=== PATIENT | female | born 1995 | race Two or more races ===

== ENCOUNTER 2017-04-28 00:52 | Emergency (ER) | payer SELFPAY ==
[~2017-04-28] VITALS: Ht 142.2 cm; Wt 81.6 kg
--- NOTE | ~2017-04-28 | CT4 ---
[facility] A Service of [facility] RADIOLOGY TEXT RESULTS PATIENT: MICHAEL PEDERSON LOCATION: SED : [birth year] UNIT #: [id number] AGE: [address]: Hitesh Montoya MD SEX: F ORDER DR: [id number] [place] [id number] E MR#: [id number] #: [id number] NAME: MICHAEL PEDERSON : 1995 SEX: F STUDY DATE/TIME: 04/28/2017 1:54 UNIT: SED ROOM: STUDY DESCRIPTION: CT Abd and Pelv Wo Cont Attending Physician: Hitesh Montoya M.D. Ordering Physician: Hitesh Montoya M.D. MEDICAL IMAGING REPORT This report is preliminary unless electronic signature is present. EXAM CT abdomen and pelvis without contrast DATE 04/28/2017. HISTORY Abdominal and low back pain for 24 hours. COMPARISON None. PROCEDURE 3 mm noncontrast axial images through the abdomen and pelvis. Enteric contrast not administered. Sagittal and coronal reformatted images were obtained. This CT exam was performed with one or more of the following radiation dose reduction techniques: Automatic exposure control, adjustment of mA and/or kV according to patient size, and iterative reconstruction. FINDINGS ABDOMEN FINDINGS: 5-mm stone is seen within the right ureteropelvic junction with very mild right hydronephrosis. No left renal stone is seen. The liver is diffusely steatotic. There is a somewhat ill defined rounded area of increased density in the central right hepatic lobe measuring 2.6 cm, which is nonspecific. The liver is mildly enlarged, measuring about 19.6 cm craniocaudally. Spleen size is normal. No ascites. Gallbladder, pancreas, adrenals are normal. The appendix is not visualized but no pericecal inflammation is seen. Limited evaluation of bowel due to lack of enteric contrast but no focal bowel inflammation is identified. PELVIS FINDINGS: No pelvic adenopathy or free fluid is identified. [facility] A Service [facility] RADIOLOGY TEXT RESULTS PATIENT: MICHAEL PEDERSON LOCATION: SED : 97 UNIT #: [id number] AGE: [address]: Hitesh Montoya MD SEX: F ORDER DR: Urinary bladder decompressed. Rectum within normal limits. No acute osseous abnormalities. Imaged lung bases are free of consolidation. IMPRESSION 1. 5 mm right ureteropelvic junction stone with mild right hydronephrosis. 2. Hepatomegaly with hepatic steatosis. 3. 2.6 cm rounded ill-defined area of increased density in the central right hepatic lobe. It is nonspecific. It could simply represent a benign area of focal fatty sparing on background hepatic steatosis. Underlying liver lesion cannot be excluded. Consider correlation to MRI abdomen without and with contrast, hepatic imaging protocol, on a non-emergent basis. Dictated by... Tatum Santos M.D. THIS IS AN ELECTRONICALLY VERIFIED REPORT Tatum Santos M.D. at 04/28/2017 9:38 PM SHARON/bennett TD: 04/28/2017 17:12 JOB #: [id number] MEDICAL IMAGING REPORT Page 1 of 1
[2017-04-28] MEDS ORDERED: NO MEDICATIONS (01:01)
[2017-04-28 01:13] LABS: URINE SOURCE CLEAN CATCH
[2017-04-28 01:16] LABS: URINE APPEARANCE HAZY; URINE BILIRUBIN NEG (NEG); URINE BLOOD 3+ (NEG); URINE COLOR YELLOW; URINE GLUCOSE NEG (NORM); URINE KETONE TRACE (NEG); URINE LEUKOCYTE ESTERASE NEG (NEG); URINE NITRATE NEG (NEG); URINE PH 5.5 (5-8); URINE PROTEIN 1+ (NEG); URINE SPECIFIC GRAVITY >=1.030 (1.003-1.035); URINE UROBILINOGEN 0.2 MG/DL (NORM)
[2017-04-28 01:21] LABS: MICRO INDICATED? YES
[2017-04-28 01:22] LABS: CULTURE INDICATED? NO; URINE BACTERIA NEG (NEG); URINE CRYSTALS CALCIUM OXALATE /[HPF]; URINE RBC 200-300 /[HPF] (0-2); URINE SQUAMOUS EPITHELIAL CELL MODERATE /[HPF]; URINE TRANSITIONAL EPI CELLS FEW /[HPF]
[2017-04-28 01:23] LABS: URINE MUCUS PRESENT
[2017-04-28 01:39] LABS: BASOPHIL# 0.1 X10e3 (0-0.3); EOSINOPHIL# 0.1 X10e3 (0-0.7); EOSINOPHIL% 0.7 % (0.0-7.0); HEMATOCRIT 36.6 % (35.0-45.0); LYMPHOCYTE# 2.8 X10e3 (1.0-3.5); LYMPHOCYTE% 21.8 % (17.0-45.0); MEAN CELL VOLUME 82.5 FL (83-96); MEAN CORPUSCULAR HEMOGLOBIN 27.1 PG (28-34); MEAN CORPUSCULAR HGB CONC 32.9 g/dL (30-36); MEAN PLATELET VOLUME 7.7 FL (6.5-11.5); MONOCYTE# 0.7 X10e3 (0-1.0); MONOCYTE% 5.4 % (3.0-12.0); NEUTROPHIL# 9.1 X10e3 (1.5-7.1); NEUTROPHIL% 71.1 % (40-75); PLATELET COUNT 390 X10e3 (140-420); RED BLOOD COUNT 4.43 X10e (3.90-5.30); RED CELL DISTRIBUTION WIDTH 13.9 % (11.0-15.5); WHITE BLOOD COUNT 12.8 X10e3 (4.0-10.5)
[2017-04-28 01:40] LABS: DIFF IND NO
[2017-04-28 01:58] LABS: ALBUMIN SERUM 4.5 g/dL (3.5-5.0); ALKALINE PHOSPHATASE 58 U/L (32-92); ALT (SGPT) 41 U/L (8-29); AMYLASE 21 U/L (0-46); AST (SGOT) 31 U/L (14-37); BILIRUBIN,TOTAL 0.5 mg/dL (0.2-2.0); BLOOD UREA NITROGEN 16 mg/dL (9-23); CALCIUM SERUM 9.2 mg/dL (8.4-10.2); CARBON DIOXIDE 22 mmol/L (22-31); CHLORIDE 108 mmol/L (100-111); CREATININE SERUM 0.8 mg/dL (0.6-1.4); GLUCOSE FASTING 96 mg/dL (70-110); LIPASE 24 U/L (22-51); POTASSIUM 3.5 mmol/L (3.5-5.1); PROTEIN TOTAL SERUM 8.8 g/dL (6.0-8.3); SODIUM 139 mmol/L (135-145)
[2017-04-28 02:00] LABS: BILIRUBIN, DIRECT <0.1 mg/dL (0.0-0.2); BILIRUBIN,INDIRECT 0.4 mg/dL (0.0-0.9)
== END 2017-04-28 02:48 | disposition home or self-care (01) ==
LOC: SED 00:52
PROVIDERS: Emergency Medicine
DX: N13.2 Hydronephrosis with renal and ureteral calculous obstruction (principal); K76.9 Liver disease, unspecified
CPT/HCPCS: 36415; 74176; 80048; 80076; 81003; 82150; 83690; 84703; 85025; 96361; 96374; 96375; 96376; 99284; J1170; J1885; J2405